=== PATIENT | male | born 1955 | race Caucasian/White ===

== ENCOUNTER 2017-04-24 06:24 | Day surgery (SDC) | payer BC ==
[~2017-04-24] VITALS: Ht 180.3 cm; Wt 100.6 kg
[~2017-04-24 06:24] MED LIST: ASPI81 PO; ATOR40TA49 PO; CARV6.25 PO; HYDR-2768 PO; LISI-360 PO; METF-324 PO; TICA90 PO
[2017-04-24] MEDS ORDERED: IOHEXOL 350 MG/ML 100 ML BTL (for Cath Lab) OTHER ONE (06:25)
[2017-04-24] MEDS ORDERED: NS 1000P @30 MLS/HR (KVO) IV SCH (07:00)
[2017-04-24 07:21] VITALS: BP 162/87; PULSE 75; RESP 18; TEMP 98.5; O2SAT 96
[2017-04-24 07:35] LABS: INTERNATIONAL NORMALIZED RATIO 1.1 RATIO; PROTHROMBIN TIME - PATIENT 10.8 SEC (9.8-11.6)
[2017-04-24 07:36] LABS: AUTOMATED NEUTROPHIL # 5.3 TH/MM3 (1.8-7.7); BASOPHIL % 0.4 % (0.0-2.0); EOSINOPHIL # 0.3 TH/MM3 (0-0.4); HEMATOCRIT 45.1 % (39.0-51.0); HEMOGLOBIN 15.6 GM/DL (13.0-17.0); LYMPH % 24.8 % (9.0-44.0); LYMPHOCYTE # 2.1 TH/MM3 (1.0-4.8); MEAN CELL VOLUME 87.6 FL (80.0-100.0); MEAN CORPUSCULAR HEMOGLOBIN 30.3 PG (27.0-34.0); MEAN CORPUSCULAR HGB CONC 34.5 % (32.0-36.0); MONO % 9.7 % (0.0-8.0); MONOCYTE # 0.8 TH/MM3 (0-0.9); NEUT % 62.1 % (16.0-70.0); PLATELET COUNT 218 TH/MM3 (150-450); RED BLOOD COUNT 5.15 MIL/MM3 (4.50-5.90); RED CELL DISTRIBUTION WIDTH 13.3 % (11.6-17.2); WHITE BLOOD COUNT 8.6 TH/MM3 (4.0-11.0)
[2017-04-24 07:43] LABS: BICARBONATE 28.5 MEQ/L (21.0-32.0); CREATININE 1.03 MG/DL (0.60-1.30)
[2017-04-24] MEDS ORDERED: CARV12.52 PO (07:51)
[2017-04-24] MEDS ORDERED: GABA300C5 PO (07:51)
[2017-04-24] MEDS ORDERED: AMLO10TA2 PO (07:51)
[2017-04-24] MEDS ORDERED: ATOR40TA16 PO (07:51)
[2017-04-24] MEDS ORDERED: VARE1PAK5 PO (07:51)
[2017-04-24] MEDS ORDERED: BENA20TA PO (07:51)
[2017-04-24] MEDS ORDERED: ASPI81TA23 PO (07:51)
[2017-04-24] MEDS ORDERED: VERAPAMIL HCL 5 MG/2 ML VIAL ONE (08:46)
[2017-04-24] MEDS ORDERED: NITROGLYCERIN INJ 5 ML ONE (08:46)
[2017-04-24] MEDS ORDERED: HEPARIN-NS/PF FLUSH BAG 2,000 ML IV FLUSH ONE (08:46)
[2017-04-24] MEDS ORDERED: HEPARIN SODIUM - IV 10,000 UNITS/10 ML VIAL ONE ×2 (08:46→09:10)
[2017-04-24] MEDS ORDERED: MIDAZOLAM HCL 2 MG/2 ML VIAL ONE (08:56)
[2017-04-24] MEDS ORDERED: TICAGRELOR 90 MG TAB PO ONE (09:12)
[2017-04-24] MEDS ORDERED: ONDANSETRON HCL 4 MG/2 ML VIAL IVP PRN (09:45)
[2017-04-24] MEDS ORDERED: ACETAMINOPHEN 325 MG TAB PO PRN (09:45)
[2017-04-24] MEDS ORDERED: MORPHINE SULFATE 2 MG/ML INJ IV PUSH PRN (09:45)
[2017-04-24] MEDS ORDERED: oxyCODONE/ACETAMINOPHEN 5 MG/325 MG TAB PO PRN (09:45)
[2017-04-24] MEDS ORDERED: oxyCODONE/ACETAMINOPHEN 10 MG/325 MG TAB PO PRN (09:45)
[2017-04-24] MEDS ORDERED: BRIL90TA PO (09:48)
--- NOTE | 2017-04-24 09:49 | CATHPROC ---
[employer] HIS Report Study Information Study Number Admission Scheduled Start Study Start [id number] Apr 24 2017 6:24AM 04/24/2017 Apr 24 2017 7:45AM [place] [facility] Cardiac Catheterization Admit Source Facility Department Other [facility] - Plate Sensitizer Physician and Clinical Staff Initial Armani Knight Private Detective Taylor Witt BSN Private Detective Kayce Palmer,RN Recorder Samantha Wadsworth ,RT(R) Scrub Sophia Hoang,RT(R) Procedures Performed Procedure Location (Site) Vessel Name Coronary Angiograms LCA Left Coronary Coronary Angiograms RCA Right Coronary Drug Eluting Inflatio RCA Mid Right Coronary L Heart Cath PTCA RCA Mid Right Coronary Wire insertion Radial (right) Radial Art. Equipment Time Va Underwriter Description Size Mfg Part Number Used/Scraped WIRE, BALANCE MIDDLEWEIGHT [id number] 09:12 [employer] 190CM Used 190CM *[id number] TRANSDUCER, TRUWAVE [id number] 08:44 BORJAS CRUZ * Used W/Aobi IslandCOCK *[id number] [phone] *[id number] *[id number] [id number] *[id number] 08:44 [employer]ES PACK, CCL CUSTOM * Used *[id number] 08:44 Source Audio SUPPORT, ARTERIAL ADULT [id number] *[id number] Used [id number] 09:13 MEDTRONIC BALLOON, 2.5 X 15MM EUPHORA 15MM Used *[id number] BALLOON, 3.0 X 15MM NC [id number] 09:21 MEDTRONIC 15MM Used EUPHORA *[id number] 09:23 MEDTRONIC STENT, 2.75 30MM NUIVA 2.75 30MM [id number] Used [id number] 09:20 [employer] 30 NICOLE INDEFLATOR Used *[id number] BAND, RADIAL COMPRESSION TR [id number] 09:33 [employer] MEDICAL 29CM Used LARGE 29 *[id number] 08:44 [employer] Group WIRE, EXCHANGE 260CM 3MMJ 260CM Used *[id number] 08:44 NAMIC MANIFOLD, 4 PORT * Used *[id number] 08:44 NYCOMED OMNIPAQUE, 350 MG, 150ML 150ML [id number] Used [id number] 08:44 [employer]AKER [employer] BLANKET,WARM AIR CCL * Used *[id number] SHEATH, FR6 TRANSRADIAL [id number] 08:44 Own Products FR 6 Used SLENDER 10CM *[id number] Equipment Model, Serial, Lot Number and Expiration Data Description Model Number Serial Number Lot Number Expiration Date STENT, 2.75 30MM NUVIA [id number] 11-03-2018 History: Current Medications Medication Dosage/Unit Route Frequency Last Date/Time Taken Statins (any) Beta Ayan ASA CARVEDILOL LISINOPRIL History: Allergies Allergy Reaction No Known Allergies History: Risk Factors Family History of Hypertension Dyslipidemia Previous GA Previous Heart Failure Premature CAD Yes Yes Yes Yes No Prior Valve Prior PCI Prior PCIDate Prior CABG Surgery No Yes 02/01/2014 No Cerebrovascular Peripheral Artery Chronic Lung On Dialysis Diabetes Diabetes Therapy Disease Disease Disease No No No No Yes Oral History: Stress Tests Stress or Imaging Studies Performed Yes Standard Exercise Stress Test No Stress Echo No Stress Test SPECT Yes Stress Test CMR No Cardiac CTA Coronary Calcium Score No No History: Arrhythmias Selection Items Atrial fibrillation History: Other Disease Selection Items CAD HTN History: Other Current Smoker Quit Packs a Day Years Used Pack Years No 1 Years Ago 1 50 50 Labs Hgb (g/dl) Hct (%) RBC (MIL/MM3) WBC (l/cumm) Platelets (thousands) 11.60-17.00 35.00-51.00 4.00-5.90 4.00-11.00 150.00-450.00 15.6 45.1 5.1 8.6 218 Glucose (mg/dl) BUN (mg/dl) Creatinine (mg/dl) BUN:Creatinine (1:x) 74.00-106.00 7.00-18.00 0.50-1.30 10.00-20.00 165 16 1.0 16 Na (meq/l) K (meq/l) 136.00-145.00 3.50-5.10 138 4.2 INR (PTT:PT) 0.90-1.10 1.1 CPK-MB (ng/ML) 0.50-3.60 Not Drawn Medication Medication Total Dose (Bolus/Oral) Medication Total Dosage/Unit 1% XYLOCAINE 20 mL BRILINTA 180 mg FENTANYL 25 mcg HEPARIN 6000 units RADIAL COCKTAIL 5 mL (Bolus) VERSED 0.5 mg Medications (Bolus/Oral) Medication Time Given Dosage/Unit Administered By Reason VERSED 04/24/2017 8:59:00 AM 0.5 mg Kayce Palmer 0.5 mg VERSED given in lab by Kayce Palmer RN in Left Antecubital via Peripheral IV. Ordered by Armani Vivas 1% XYLOCAINE 04/24/2017 9:00:34 AM 20 mL Armani Alba 20 mL 1% XYLOCAINE given in lab by Armani Alba in Right Radial via Subcutaneous. Ordered by Armani Donaldson FENTANYL 04/24/2017 9:00:46 AM 25 mcg Kayce Palmer 25 mcg FENTANYL given in lab by Kayce Palmer RN in Left Antecubital via Peripheral IV. Ordered by Armani Alba Ntg 200mcg Verapamil 2.5mg Heparin RADIAL COCKTAIL 04/24/2017 9:02:43 AM 5 mL (Bolus) Armani Alba 2500U 5 mL (Bolus) RADIAL COCKTAIL given in lab by Kayce Palmer RN via Radial. Using [Solution Name]. Or dered by Armani Alba Reason: Ntg 200mcg Verapamil 2.5mg Heparin 4000U. HEPARIN 04/24/2017 9:11:55 AM 6000 units Kayce Palmer 6000 units HEPARIN given in lab by Kayce Palmer RN in Left Antecubital via Peripheral IV. Ordered by Armani Alba BRILINTA 04/24/2017 9:35:47 AM 180 mg Kayce Palmer 180 mg BRILINTA given in lab by Kayce Palmer RN via Oral. Ordered by Armani Alba Medication (Drip) Medication Time Given Dosage/Unit Concentration/Unit Diluent (ml) Solution IV Solutions 04/24/2017 8:41:02 AM 50 mL (IV) NaCl .9 Patient arrived on IV Solutions in Left Antecubital via Peripheral IV. Pump/Drip Flow using NaCl .9. Initial Case Assessment Cardiovascular HR NIBP Chest Pain 84 165/97 0 Edema Present Skin color Skin None Normal Warm Dry Circulatory - Right Pulses Dorsalis Pedis Femoral Radial 1 2 2 Scale (0,1,2,3,4,d) Circulatory - Left Pulses Dorsalis Pedis Femoral Radial 2 Scale (0,1,2,3,4,d) Circulatory - Lower Extremities Color Lower Right Color Lower Left Normal Normal Neurological State Oriented to time-place- Alert Moves all extremities person Respiration - General Respiration Rate SpO2 (%) (B/min) 20 98 Final Case Assessment Cardiovascular HR NIBP Chest Pain 81 164/101 0 Edema Present Skin color Skin None Normal Warm Dry Circulatory - Right Pulses Dorsalis Pedis Femoral Radial 1 2 2 Scale (0,1,2,3,4,d) Circulatory - Left Pulses Dorsalis Pedis Femoral Radial 2 Scale (0,1,2,3,4,d) Circulatory - Lower Extremities Color Lower Right Color Lower Left Normal Normal Neurological State Oriented to time-place- Alert Moves all extremities person Respiration - General Respiration Rate SpO2 (%) (B/min) 22 95 Chronological Log Time Study Chronological Log 8:36:19 Patient arrived via Bed. 8:36:19 Patient Name, D.O.B, / Armband Verified By R.N. Vitals capture started with the following parameters, Patient=Adult, Interval=5 min, Initial Pr eeieig=358 mmHg, 8:40:38 Deflation Rate=5 mmHg, Cuff placed on Left Arm 8:40:43 Consent signed by the physician and the patient and verified by the Plate Sensitizer staff. 8:40:44 Verbal Stimulation=2 Physical Stimulation=2 Airway=2 Respiration=2 TOTAL=8. (0=absent, 1=li mited, 2=present) 8:40:46 Allens test performed on the right radial and ulnar artery. Positive 8:40:56 Patient has been NPO for More than 6Hrs. 8:40:56 Skin Breakdown- none per patient 8:40:57 Patient Warmer Placed on the Table. 8:40:59 Pamela Prominences Protected 8:41:01 A # 20 IV was noted in the Antecubital (left). Grade = 0 8:41:02 Patient arrived on IV Solutions in Left Antecubital via Peripheral IV. Pump/Drip Flow using NaCl .9. 8:41:02 History and physical on the chart or being dictated. Assessment: Initial Case, HR=84 BPM, TZKO=172/97 mmhg, Chest Pain=0, Edema=None, Color=Normal, S kin = Warm, Dry Right Pulses: Bennie Ped=1, Femoral=2, Radial=2 Left Pulses: Femoral=2 8:41:03 Lower Right Extremities: Color=Normal Lower Left Extremities: Color=Normal Neurological: State=Alert, Ox3, VILLARREAL Respiration: Resp=20 B/min, SpO2=98 % 8:41:39 HR=80 bpm, PNNH=044/97 mmhg, SpO2=96.0 %, Resp=19 B/min, Pain=0, Silas=10, Turpin=2 8:46:18 HR=80 bpm, IWBM=650/101 mmhg, SpO2=95.0 %, Resp=20 B/min, Pain=0, Silas=10, Turpin=2 8:48:23 Right Radial and groin(s) prepped with 2% chlorhexidine, and draped after a 3 min. waiting t jacquie. 8:50:30 Reference ECG taken 8:51:17 HR=80 bpm, RNWW=200/98 mmhg, SpO2=97.0 %, Resp=18 B/min, Pain=0, Silas=10, Turpin=2 8:52:12 Pressure channel 1 zeroed. 8:55:34 MD arrived. 8:56:18 HR=79 bpm, PEYP=114/93 mmhg, SpO2=96.0 %, Resp=18 B/min, Pain=0, Silas=10, Turpin=2 0.5 mg VERSED given in lab by Kayce Palmer, RN in Left Antecubital via Peripheral IV. Ordered by Armani Alba 8:59:00 G. Time Out. Correct patient, correct procedure, correct physician, power injector not loaded with contrast with surgical 8:59:53 team present. Time Out Concurred by MD and individual staff in procedure. 9:00:09 Case Start 20 mL 1% XYLOCAINE given in lab by Armani Alba in Right Radial via Subcutaneous. Ordered by Parth 9:00:34 Armani Nelson 25 mcg FENTANYL given in lab by Kayce Palmer, RN in Left Antecubital via Peripheral IV. Ordere d by Parth 9:00:46 Armani Winslow. 9:01:18 Access site was Right Radial Artery. A SHEATH, FR6 TRANSRADIAL SLENDER 10CM FR 6 was advanced into the Radial (right) using the Major austin 9:01:33 technique. 9:01:56 HR=80 bpm, RWIY=868/97 mmhg, SpO2=93.0 %, Resp=20 B/min, Pain=0, Silas=10, Turpin=2 5 mL (Bolus) RADIAL COCKTAIL given in lab by Kayce Palmer, TANGLEA via Radial. Using [Solution Name ]. Ordered by 9:02:43 Armani Alba Reason: Ntg 200mcg Verapamil 2.5mg Heparin 4000U. A JR 4.0 INFINITI CATHETER FR 5 was advanced over a wire. OMNIPAQUE, 350 MG, 150ML 150ML was use d for 9:03:17 injections. Recorded Pressure: LV, HR=82, Condition=Condition 1 9:04:25 (Left Ventricle) LV 108/0/5 Recorded Pressure: LV, Ao, HR=82, Condition=Condition 1 9:04:35 (Left Ventricle) LV 106/0/5, (Aorta) Ao 104/66/81 9:05:14 The RCA was injected and visualized at various angles. OMNIPAQUE, 350 MG, 150ML 150ML used. 9:05:56 Catheter was removed A JL 3.5 INFINITI CATHETER FR 5 was advanced over a wire. OMNIPAQUE, 350 MG, 150ML 150ML was use d for 9:06:10 injections. 9:06:16 HR=83 bpm, RBSH=567/78 mmhg, SpO2=89.0 %, Resp=19 B/min, Pain=0, Silas=10, Turpin=2 9:08:29 The LCA was injected and visualized at various angles. OMNIPAQUE, 350 MG, 150ML 150ML used. 9:10:40 Catheter was removed 9:11:11 HR=89 bpm, OENT=901/83 mmhg, SpO2=93.0 %, Resp=14 B/min, Pain=0, Silas=10, Turpin=2 6000 units HEPARIN given in lab by Kayce Palmer, RN in Left Antecubital via Peripheral IV. Ord ered by Parth, 9:11:55 Armani JACKMAN75 GUIDE CATHETER FR 6 was advanced over a wire. OMNIPAQUE, 350 MG, 150ML 150ML was used f or 9:12:50 injections. 9:15:41 A WIRE, BALANCE MIDDLEWEIGHT 190CM 190CM was inserted via Radial (right). 9:16:14 HR=74 bpm, OJAY=321/76 mmhg, SpO2=93.0 %, Resp=17 B/min, Pain=0, Silas=10, Turpin=2 9:16:22 Interventional wire has crossed the lesion 9:17:40 Activated Clotting Time Drawn A BALLOON, 2.5 X 15MM EUPHORA 15MM was inserted over WIRE, BALANCE MIDDLEWEIGHT 190CM 190CM via the 9:18:44 Radial (right). A BALLOON, 2.5 X 15MM EUPHORA 15MM over a WIRE, BALANCE MIDDLEWEIGHT 190CM 190CM in the RCA Mid was 9:19:11 inflated using a 30 NICOLE INDEFLATOR at 14 nicole for 20 sec. A BALLOON, 2.5 X 15MM EUPHORA 15MM over a WIRE, BALANCE MIDDLEWEIGHT 190CM 190CM in the RCA Mid was 9:20:13 inflated using a 30 NICOLE INDEFLATOR at 14 nicole for 14 sec. 9:21:13 HR=77 bpm, SRNY=348/79 mmhg, SpO2=94.0 %, Resp=19 B/min, Pain=0, Silas=10, Turpin=2 9:21:40 Balloon Removed. A STENT, 2.75 30MM NUVIA 2.75 30MM was advanced through a AL .75 GUIDE CATHETER FR 6 over a WIRE, BALANCE 9:21:55 MIDDLEWEIGHT 190CM 190CM. 9:23:37 ACT (Normal Range 90-180) = 330 A STENT, 2.75 30MM NUVIA 2.75 30MM was deployed using a 30 NICOLE INDEFLATOR at 18 atmospheres for 2 5 seconds 9:23:59 in the RCA Mid. A STENT, 2.75 30MM NUVIA 2.75 30MM was deployed using a 30 NICOLE INDEFLATOR at 15 atmospheres for 1 2 seconds 9:24:52 in the RCA Mid. 9:26:03 Delivery device removed 9:26:14 HR=75 bpm, PJSL=341/90 mmhg, SpO2=90.0 %, Resp=19 B/min, Pain=0, Silas=10, Turpin=2 A BALLOON, 3.0 X 15MM NC EUPHORA 15MM was inserted over WIRE, BALANCE MIDDLEWEIGHT 190CM 190CM v ia 9:27:23 the Radial (right). A BALLOON, 3.0 X 15MM NC EUPHORA 15MM over a WIRE, BALANCE MIDDLEWEIGHT 190CM 190CM in the RCA M id 9:27:33 was inflated using a 30 NICOLE INDEFLATOR at 12 nicole for 10 sec. A BALLOON, 3.0 X 15MM NC EUPHORA 15MM over a WIRE, BALANCE MIDDLEWEIGHT 190CM 190CM in the RCA M id 9:27:44 was inflated using a 30 NICOLE INDEFLATOR at 18 nicole for 15 sec. A BALLOON, 3.0 X 15MM NC EUPHORA 15MM over a WIRE, BALANCE MIDDLEWEIGHT 190CM 190CM in the RCA M id 9:28:23 was inflated using a 30 NICOLE INDEFLATOR at 18 nicole for 10 sec. A BALLOON, 3.0 X 15MM NC EUPHORA 15MM over a WIRE, BALANCE MIDDLEWEIGHT 190CM 190CM in the RCA M id 9:28:50 was inflated using a 30 NICOLE INDEFLATOR at 18 nicole for 10 sec. A BALLOON, 3.0 X 15MM NC EUPHORA 15MM over a WIRE, BALANCE MIDDLEWEIGHT 190CM 190CM in the RCA M id 9:29:41 was inflated using a 30 NICOLE INDEFLATOR at 24 nicole for 15 sec. 9:30:35 Balloon Removed. 9:32:02 HR=77 bpm, WAOO=485/101 mmhg, SpO2=91.0 %, Resp=16 B/min, Pain=0, Silas=10, Turpin=2 9:32:53 Wire removed 9:33:51 Catheter was removed 9:34:15 Case End Assessment: Final Case, HR=81 BPM, JEWI=869/101 mmhg, Chest Pain=0, Edema=None, Color=Normal, Sk in = Warm, Dry Right Pulses: Bennie Ped=1, Femoral=2, Radial=2 Left Pulses: Femoral=2 9:34:17 Lower Right Extremities: Color=Normal Lower Left Extremities: Color=Normal Neurological: State=Alert, Ox3, VILLARREAL Respiration: Resp=22 B/min, SpO2=95 % 9:34:19 Catheter(s) removed without difficulty Radial Compression Device Used. 10 mLs of air placed in BAND, RADIAL COMPRESSION TR LARGE 29 29C M. Affected 9:34:21 hand 96 % O2 saturation. 9:34:23 No case complications noted. 9:34:24 Cine recording checked. 9:34:26 Bedside Report will be given. 9:34:36 A Left Heart Cath was performed. 9:35:47 180 mg BRILINTA given in lab by Kayce Palmer RN via Oral. Ordered by Armani Alba 9:36:18 HR=75 bpm, AKXX=765/100 mmhg, SpO2=93.0 %, Resp=22 B/min, Pain=0, Silas=10, Turpin=2 9:41:20 GMUQ=514/99 mmhg, Pain=0, Silas=10, Turpin=2 9:46:19 Vitals capture stopped. 9:46:38 Patient moved to [facility] End Study - Contrast Media Used In Study Contrast Total Opened (mL) Total Used (mL) Total Wasted (mL) Omnipaque 100 100 0 End Study - Maximum Contrast Load Max Contrast Load (mL) 503.0 End Study - Radiation Exposure Fluoro Time (minutes) 6.5 End Study - Sheaths Sheaths Pulled By Sheath Hold Time (min) Sophia Hoang End Study - Patient Disposition Complications Transferred To Interventional Outcome No Plate Sensitizer Holding successful
--- NOTE | 2017-04-24 15:24 | EKG ---
Date Performed: 04/24/2017 Time Performed: 07:28:50 PTAGE: 62 years EKG: Sinus rhythm Normal ECG PREVIOUS TRACING : 02/02/2014 00.20 DOCTOR: Sudarshan Mack Interpretating Date/Time 04/24/2017 15:22:58
[2017-04-24] MEDS ORDERED: TICAGRELOR 90 MG TAB PO SCH (18:00)
[2017-04-25] MEDS ORDERED: ASPIRIN 81 MG CHEW TAB PO SCH (09:00)
--- NOTE | 2017-04-26 10:40 | MA ---
cc: ARMANI REDD DO DATE 04/24/2017 PROCEDURE Left heart catheterization, coronary angiogram, moderate sedation 35 minutes, keli drug-eluting stent (2.75 x 30) to RCA. PREPROCEDURE DIAGNOSIS Chest pain/shortness of breath, abnormal stress test on multiple antianginal medications. POSTPROCEDURE DIAGNOSIS Coronary artery disease status post keli drug-eluting stent (2.75 x 30) to the RCA. MEDICATIONS 1. Versus 0.5 mg. 2. Fentanyl 25 mcg. 3. Heparin 10,000 units. 4. Verapamil 2.5 mg. 5. Nitro 200 mcg 6. Brilinta 180 mg daily CONTRAST 100 cc FLUOROSCOPY 6.5 minutes ANESTHESIA Moderate sedation 35 minutes ESTIMATED BLOOD LOSS 10 cc PROCEDURAL SUMMARY Rob Mejia is a pleasant 62-year male who sees my partner Dr. De Oliveira in the office and underwent stress testing due chest pain and shortness of breath. He was found to have inferior ischemia and because of this recommended cardiac catheterization. Risks, benefits and alternatives were explained to him and he consented as such. He was brought to lab and prepped in the usual sterile fashion. Right radial artery was accessed using a modified Seldinger technique and placement of a 5/6 [place] slender sheath. This was easily aspirated and flushed. A JR-4 was advanced over a J-wire to the ascending aorta and across the aortic valve for measurement of left ventricular pressure. This was pulled back across the aortic valve showing no significant gradient of aortic stenosis. JR-4 was used for selective angiography of the right coronary artery system. This was exchanged out for a JL-3.5 which was used for selective angiography of the left coronary artery system. Please see notes below for intervention. FINDINGS Left main is a normal size vessel with 10% disease in the midportion. It bifurcates into an LAD and circumflex. LAD is a normal-size vessel with 10% disease in the proximal portion. Throughout the midportion, there is diffuse 50% disease in an overall small vessel. It gives off two diagonals with no significant disease. Left circumflex is a small vessel overall. It gives off one obtuse marginal. After the circumflex, it is 100% occluded. There is some yufk-ln-chiz collaterals which fills a second or third obtuse marginal. RCA normal-size vessel. Long tubular 80-90% lesion in the [id number] portion. In the distal portion, previous stent is patent. RCA gives off a PDA as well as a large PLV. LVEDP 5. INTERVENTION Because of the significance of disease in the RCA, I felt like this should be intervened on. An AL 0.75 guide was engaged into the right coronary artery system. The patient was given heparin as an anticoagulant. The BMW wire was advanced into the distal RCA. A compliant balloon (2.5 x 12) was used to predilate the lesion. An keli drug-eluting stent (2.75 x 30) was then inflated over the lesion with minimal overlap with the distal stent. This was then postdilated with a noncompliant balloon (3 x 15). Final angiogram shows a well opposed stent with no perforations or dissections. The wire was removed as well as the guide. Radial band was placed over the arteriotomy site for hemostasis. The patient was given 180 mg of Brilinta. He left the ammunition assembly laborer cardiovascularly stable. IMPRESSIONS 1. Unstable angina status post keli drug-eluting stent (2.75 x 30) to the RCA with minimal overlap distally to previous Stent. 2. Abnormal stress test. RECOMMENDATIONS 1. Mr. Mejia underwent PCI as above. He was previously on aspirin and Brilinta and will be restarted on this. 2. He will continue on beta kamilah, statin and FAISAL inhibitor therapy. 3. He will be discharged home tonight and follow up with Dr. De Oliveira as previously scheduled. Thank you for allowing me to see Rob Mejia. If there are any questions, please do not hesitate to call. Armani Redd DO VGP/DJL /10:54 PM /10:25 AM
== END 2017-04-24 18:45 | disposition home or self-care (01) ==
LOC: HDOC 06:24 → HDIC 06:24 → HDOC 18:45
PROVIDERS: ATTEND Nuclear Medicine Nuclear Cardiology
DX: I25.110 Atherosclerotic heart disease of native coronary artery with unstable angina pectoris (principal); R06.02 Shortness of breath; R94.39 Abnormal result of other cardiovascular function study; E11.9 Type 2 diabetes mellitus without complications; Z01.818 Encounter for other preprocedural examination; I11.9 Hypertensive heart disease without heart failure; I25.2 Old myocardial infarction; I48.91 Unspecified atrial fibrillation; F17.200 Nicotine dependence, unspecified, uncomplicated
CPT/HCPCS: 80048; 85002; 85025; 85610; 85730; 92928; 93005; 93458; 99152; 99153; C1725; C1769; C1874; C1887; C1893; J1644; J2250; J3010; Q9967